=== PATIENT | male | born 1960 | race American Indian/Alaskan Native ===

== ENCOUNTER 2017-01-22 06:51 | Emergency (ER) | payer OTHER ==
[2017-01-22 10:07] VITALS: BP 138/98
[2017-01-22 17:55] LABS: Blood Urea Nitrogen 11 mg/dL (9-20); Calcium 9.5 mg/dL (8.4-10.2); Carbon Dioxide 25 mmol/L (22-30); Glucose 80 mg/dL (75-100)
[2017-01-22 17:56] LABS: Anion Gap 17 mmol/L; Chloride 104.5 mmol/L (98-107); Potassium 4.5 mmol/L (3.6-5.0); Sodium 142 mmol/L (137-145)
[2017-01-22 18:52] LABS: Red Blood Count 5.43 M/mm3 (3.65-5.03); White Blood Count 4.9 K/mm3 (4.5-11.0)
[2017-01-22 18:53] LABS: Basophils % (Auto) 0.8 % (0.0-1.8); Eosinophils % (Auto) 2.2 % (0.0-4.3); Hematocrit 47.3 % (35.5-45.6); Hemoglobin 15.3 gm/dl (11.8-15.2); Mean Corpuscular HGB Conc 32 % (32-34); Mean Corpuscular Hemoglobin 28 pg (28-32); Mean Corpuscular Volume 87 fl (84-94); Platelet Count 139 K/mm3 (140-440); Red Cell Distribution Width 14.8 % (13.2-15.2)
[2017-01-22 18:55] LABS: Bilirubin,Urine Negative (Negative); Blood,Urine Negative (Negative); Ketones,Urine Negative (Negative); Leukocyte Esterase,Urine Negative (Negative); Nitrite,Urine Negative (Negative); Protein,Urine <15 mg/dL mg/dL (Negative); Urobilinogen,Urine < 2.0 mg/dL (<2.0)
[2017-01-22 18:56] LABS: Bacteria,Urine 1+ /HPF (Negative); Mucus,Urine Few /HPF
== END 2017-01-22 11:13 | disposition left against medical advice (07) ==
LOC: ED 06:51
DX: R53.1 Weakness (principal); Z53.21 Procedure and treatment not carried out due to patient leaving prior to being seen by health care provider
CPT/HCPCS: 36415; 80048; 81001; 85025; G0480; 80320